=== PATIENT | female | born 1990 | race Two or more races ===

== ENCOUNTER → 2017-11-14 | Outpatient (CLI) | payer OTHER ==
[~2017-11-14] MED LIST: PRENATAL CAPLE1 EACH
== END | disposition home or self-care (01) ==
LOC: PPH VACUNA 11:43
DX: Z23 Encounter for immunization (principal)

== ENCOUNTER → 2017-12-22 | Outpatient (CLI) | payer OTHER | END | disposition home or self-care (01) | LOC: PPH VACUNA 12:24 | DX: Z23 Encounter for immunization (principal) ==

== ENCOUNTER 2018-03-16 12:26 | Outpatient (CLI) | payer OTHER | END 2018-03-16 12:32 | disposition home or self-care (01) | LOC: LAB 12:26 | DX: Z11.3 Encounter for screening for infections with a predominantly sexual mode of transmission (principal); Z11.1 Encounter for screening for respiratory tuberculosis ==

== ENCOUNTER 2019-12-17 12:50 | Emergency (ER) | payer OTHER ==
[~2019-12-17] VITALS: Ht 160 cm; Wt 63.5 kg
[2019-12-17] MEDS ORDERED: MUCINEX1200 MG PO ×2 (18:17→18:18)
[2019-12-17] MEDS ORDERED: PROMETH-CODEIN 65 ML PO (18:17)
== END 2019-12-17 20:58 | disposition home or self-care (01) ==
LOC: ER 12:50
DX: J11.1 Influenza due to unidentified influenza virus with other respiratory manifestations (principal)